=== PATIENT | male | born 1980 | race Caucasian/White ===

== ENCOUNTER 2020-02-12 10:56 | Emergency (ER) | payer MEDICAID ==
[~2020-02-12] VITALS: Ht 180.3 cm; Wt 79.4 kg
[2020-02-12 11:04] VITALS: BP 110/82
[2020-02-12] MEDS ORDERED: CEFTRIAXONE 1 G VIAL ONE (11:18)
[2020-02-12] MEDS ORDERED: LIDOCAINE /MPF 1% VIAL 5 ML VIAL ONE (11:19)
[2020-02-12] MEDS ORDERED: CEFTRIAXONE 1 G VIAL IM ONE (11:30)
== END 2020-02-12 11:32 | disposition home or self-care (01) ==
LOC: ER 11:04
DX: L03.115 Cellulitis of right lower limb (principal)
CPT/HCPCS: 96372; 99283; J0696; J3490